=== PATIENT | male | born 1990 | race Two or more races ===

== ENCOUNTER 2025-02-15 10:16 | Emergency (ER) | payer SELFPAY ==
[~2025-02-15] VITALS: Ht 175.3 cm; Wt 100.0 kg
[2025-02-15] MEDS: LIDOCAINE 5% TRANSDERMAL PATCH TD ONE (11:12)
[2025-02-15] MEDS: IBUPROFEN 600 MG TABLET PO ONE (11:12)
[2025-02-15] MEDS ORDERED: IBUP-1492 PO (11:29)
[2025-02-15] MEDS ORDERED: LIDO700A15 TP (11:29)
[2025-02-15] MEDS ORDERED: METH-659 PO (11:29)
[2025-02-15 12:10] VITALS: BP 138/79; PULSE 74; RESP 16; TEMP 98.2; O2SAT 96
== END 2025-02-15 12:23 | disposition home or self-care (01) ==
LOC: EMS 10:16
DX: S29.012A Strain of muscle and tendon of back wall of thorax, initial encounter (principal); V53.5XXA Driver of pick-up truck or van injured in collision with car, pick-up truck or van in traffic accident, initial encounter; Y93.89 Activity, other specified; Y92.89 Other specified places as the place of occurrence of the external cause; Y99.8 Other external cause status
CPT/HCPCS: 99283